=== PATIENT | male | born 1955 | race Caucasian/White ===

== ENCOUNTER 2019-02-16 13:28 | Emergency (ER) | payer BC ==
--- OUTSIDE RECORDS SUMMARY | 2019-02-16 13:33 | XMS REPORT | Continuity of Care Document ---
:1955 External Reference #:[id number] Author Name Ross Nolvia Care Team Providers Name Role Phone Autumn Swain MD Primary Care Physician Unavailable Payers Date Identification Numbers Payment Provider Subscriber Policy Number: [id number] BS Abdon Zoraida Tom PayID: [id number] [address] [address] [place] [address] Advance Directives Description No Information Available Problems Date Description Provider Status Onset: 12/06/2018 Localized, primary osteoarthritis Yasmine Camarena M.D. Active Onset: 01/05/2019 Current tear of medial cartilage AND/OR Yasmine Camarena M.D. Active meniscus of knee Family History Description No Information Available Social History Type Date Description Comments Sex Unknown Lives With Spouse Occupation [employer] ETOH Use Currently consumes alcohol Tobacco Use Start: Unknown Patient has never smoked Smoking Status Reviewed: 01/31/19 Patient has never smoked Exercise Type/Frequency Exercises sporadically Allergies, Adverse Reactions, Alerts Date Description Reaction Status Severity Comments 12/06/2018 Penicillin Active uticaria 12/06/2018 Sodium Penthanol Active severe vommiting Medications Medication Date Status Form Strength Qnty SIG Indications Ordering Provider Shingrix 01/31/ Active Suspension 50mcg/0.5M 2units inject per Z23 Autumn 2019 Rec L protocol MD Wiliam Carvedilol / Active Tablets 12.5mg 1 by mouth Unknown 0000 twice a day Glipizide / Active Tablets 5mg 1 by mouth Unknown 0000 every day Losartan 0000/ Active Tablets 100mg 1 by mouth Unknown Potassium 0000 every day Simvastatin 00// Active Tablets 40mg 1 by mouth Unknown 0000 every day Omeprazole / Active Capsules DR 40mg 1 by mouth Unknown 0000 every day Lasix / Active Tablets 40mg 1 by mouth Unknown 0000 every day Aspirin Low / Active Chewtabs 81mg 1 by mouth Unknown Dose Adult 0000 every day in PM Multi Vitamin / Active Tablets 1 by mouth Unknown 0000 every day Vitamin C / Active Tablets 1000mg 1 by mouth Unknown 0000 every day Ibuprofen / Active Capsules 200mg prn Unknown 0000 Fish Oil / Active Capsules 2000mg daily Unknown 0000 Medications Administered in Office Medication Date Status Form Strength Qnty SIG Indications Ordering Provider Depomedrol Administered Injection Yasmine 40MG Becky Camarena M.D. Immunizations Description No Information Available Vital Signs Date Vital Result Comment 01/31/2019 11:57am Height 70.25 inches 5'10.25" Weight 240.00 lb Heart Rate 56 /min BP Systolic 123 mmHg BP Diastolic 77 mmHg Body Temperature 96.6 F O2 % BldC Oximetry 96 % BMI (Body Mass Index) 34.2 kg/m2 01/05/2019 8:01am Height 71 inches 5'11" Weight 230.00 lb Heart Rate 64 /min BP Systolic 116 mmHg BP Diastolic 68 mmHg BMI (Body Mass Index) 32.1 kg/m2 12/06/2018 9:27am Height 61 inches 5'1" Weight 232.00 lb BP Systolic 112 mmHg BP Diastolic 69 mmHg Respiratory Rate 16 /min Pain Level 7 BMI (Body Mass Index) 43.8 kg/m2 Results Description No Information Available Procedures Date Code Description Status 01/05/2019 07524 Inject/Drain Joint/Bursa Major W/O US Completed Encounters Type Date Location Provider Dx Diagnosis Office Visit 01/05/2019 Orthopedic Yasmine Camarena, M25.561 Pain in right 8:00a [facility] knee M25.461 Effusion, right knee S83.241A Oth tear of medial meniscus, current injury, r knee, init M17.11 Unilateral primary osteoarthritis, right knee Office Visit 12/06/2018 9:00a [facility] Yasmine Camarena, M25.561 Pain in right Of [facility] M.[facility] knee M25.562 Pain in left knee M25.462 Effusion, left knee M25.461 Effusion, right knee M17.0 Bilateral primary osteoarthritis of knee M23.8x1 Other internal derangements of right knee Plan of Treatment Future Appointment(s):08/06/2019 10:00 am - Autumn Swain MD at [facility] - Kdfxzypjd33/06/2019 - Autumn Swain MDH92.01 Otalgia, right earReferral:Ulysses Yang MD, LxprishfrgabzrG35.512 Pain in left shoulderNew Xrays:Shoulder Left 2+ VWS, Ordered: 01/31/19E11.9 Type 2 diabetes mellitus without complicationsNew Labs:Hemoglobin A1c (Glyco HGB), Ordered: Lipid Profile (Trig/Chol/HDL), Ordered: 01/31/19Comp Metabolic Panel, Ordered : 01/31/19Urine Microalbumin Random, Ordered: 01/31/19PSA Free And Total, Ordered: 01/31/19Follow up:F/U 6 [id number] Cardiomyopathy, tseaesjpkolM18 Essential (primary) vwlrxzthsxtbC16.5 Hyperlipidemia, zaugbfjdfdwX23.20 Elevated prostate specific antigen [PSA]Referral:De Robles MD, [id number] Encounter for immunizationNew Medication:Shingrix 50 mcg/0.5ML - inject per protocol
[2019-02-16 13:44] VITALS: BP 148/97
--- NOTE | 2019-02-16 14:11 | UC ---
Skin Complaint HPI - HPI Summary HPI Summary: tick bite right forearm x 2 days no fever, no chills , no joint or body aches - History of Current Complaint Chief Complaint: UCSkin Time Seen by Provider: 02/16/19 13:44 Stated Complaint: TICK Hx Obtained From: Patient Onset/Duration: Gradual Onset, Lasting Days - 2, Still Present Timing: Constant Onset Severity: Mild Current Severity: Mild Pain Intensity: 6 Location: Discrete - right forearm Character: Redness Aggravating Factor(s): Nothing Alleviating Factor(s): Nothing Associated Signs & Symptoms: Positive: Negative. Negative: Nausea, Vomiting, Numbness, Weakness, Fever, Chills, Tenderness, Red Streaks Related History: Insect Bite/Sting - tick bite - Allergy/Home Medications Allergies/Adverse Reactions: Allergies Allergy/AdvReac Type Severity Reaction Status Date / Time Penicillins Allergy Hives Verified 02/16/19 13:45 Home Medications: Home Medications Aspirin [Aspirin Childrens 81 MG] 81 mg PO DAILY 02/16/19 [History Confirmed ] Carvedilol TAB* [Coreg TAB*] 12.5 mg PO BID 02/16/19 [History Confirmed 02/16/19 ] Furosemide TAB* [Lasix TAB*] 40 mg PO DAILY 02/16/19 [History Confirmed 02/16/19 ] Ibuprofen TAB* [Advil TAB*] 200 mg PO Q6H PRN 02/16/19 [History Confirmed ] Losartan TAB* [Cozaar TAB*] 100 mg PO DAILY 02/16/19 [History Confirmed 02/16/19 ] Multivitamin [Multivitamins] 1 cap PO DAILY 02/16/19 [History Confirmed 02/16/19 ] [place]-3/Dha/Epa/Fish Oil [Fish Oil 500 mg Softgel] 2 cap PO DAILY 02/16/19 [ History Confirmed 02/16/19] Omeprazole 40 mg PO DAILY 02/16/19 [History Confirmed 02/16/19] Simvastatin 40 mg PO DAILY 02/16/19 [History Confirmed 02/16/19] glipiZIDE TAB* [Glucotrol TAB*] 5 mg PO BID 02/16/19 [History Confirmed 02/16/19 ] PMH/Surg Hx/FS Hx/Imm Hx Endocrine History: Diabetes Cardiovascular History: Cardiac Disease, Hypertension - Surgical History Surgical History: Yes Surgery Procedure, Year, and Place: ICD- MEDTRONIC [id number] [facility] ET - MR CONDITIONAL 03/2016. ACD, LSP DISCECTOMY 1999, RT ANKLE ORIF,. CATARACT REPAIR - Family History Known Family History: Positive: Hypertension, Diabetes - Social History Alcohol Use: Occasionally Substance Use Type: None Smoking Status (MU): Never Smoked Tobacco Review of Systems All Other Systems Reviewed And Are Negative: Yes Constitutional: Positive: Negative Eyes: Positive: Negative ENT: Positive: Negative Respiratory: Positive: Negative Is Patient Immunocompromised?: No Physical Exam Triage Information Reviewed: Yes Appearance: Well-Appearing, No Pain Distress, Well-Nourished Vital Signs: Initial Vital Signs Temp 97.3 F 02/16/19 13:40 Pulse 84 02/16/19 13:40 Resp 14 02/16/19 13:40 BP 148/97 02/16/19 13:40 Pulse Ox 94 02/16/19 13:40 Vital Signs Reviewed: Yes Eye Exam: Normal Eyes: Positive: Conjunctiva Clear ENT: Positive: Normal ENT inspection, Hearing grossly normal, Pharynx normal Neck: Positive: Supple, Nontender, No Lymphadenopathy Respiratory: Positive: Chest non-tender, Lungs clear, Normal breath sounds Cardiovascular: Positive: RRR, No Murmur, Pulses Normal Skin: Positive: Other - samll tick on right forearm , tick was removed using a tick twister Course/Dx - Diagnoses Provider Diagnosis: Tick bite of right forearm Discharge - Sign-Out/Discharge Documenting (check all that apply): Patient Departure All imaging exams completed and their final reports reviewed: No Studies - Discharge Plan Condition: Stable Disposition: HOME Prescriptions: DOXYcycline CAP(*) [DOXYcycline 100MG CAP(*)] 200 mg PO DAILY #2 cap Patient Education Materials: Tick Bite (ED) Referrals: Autumn Swain MD [Primary Care Provider] - If Needed - Billing Disposition and Condition Condition: STABLE Disposition: Home
== END 2019-02-16 14:10 | disposition home or self-care (01) ==
LOC: UCEAST 13:28
DX: S50.861A Insect bite (nonvenomous) of right forearm, initial encounter (principal); Z88.0 Allergy status to penicillin; I10 Essential (primary) hypertension; E11.9 Type 2 diabetes mellitus without complications; W57.XXXA Bitten or stung by nonvenomous insect and other nonvenomous arthropods, initial encounter; Y92.9 Unspecified place or not applicable
CPT/HCPCS: 99212; G0463

== ENCOUNTER 2021-06-18 00:46 | Observation (INO) ==
[2021-06-18] MEDS ORDERED: Morphine 4 MG/ML VIAL (1 ml) IV ONE (02:29)
[2021-06-18 02:31] LABS: ABS Lymphocytes 0.7 10^3/ul (1.0-4.8); ABS Monocytes 1.1 10^3/ul (0-0.8); ABS Neutrophils 13.1 10^3/ul (1.5-7.7); Eosinophil % 0.2 %; Hematocrit 42 % (42-52); Hemoglobin 14.4 g/dL (14.0-18.0); Lymphocyte % 4.9 %; Mean Corpuscular HGB Conc 34 g/dL (31-36); Mean Corpuscular Hemoglobin 30 pg (27-31); Mean Corpuscular Volume 89 fL (80-94); Mean Platelet Volume 10.2 fL (7.4-10.4); Platelet Count 178 10^3/uL (150-450); Red Blood Count 4.78 10^6 /uL (4.18-5.48); Red Cell Distribution Width 14 % (10-15)
[2021-06-18 02:50] LABS: Albumin 3.7 g/dL (3.2-5.2); Albumin/Globulin Ratio 1.1 (1-3); C Reactive Protein 12.46 mg/L (<8.01); Calcium 9.5 mg/dL (8.6-10.3); EGFR African American 85.5 (>60); EGFR Non-African American 70.7 (>60); Globulin 3.3 g/dL (2-4); Potassium 4.3 mmol/L (3.5-5.0); Total Bilirubin 0.9 mg/dL (0.2-1.0)
[2021-06-18 02:57] LABS: Urine Appearance Clear; Urine Bilirubin Negative (Negative); Urine Blood Negative (Negative); Urine Color Yellow; Urine Glucose 1+(50 mg/dL) (Negative); Urine Ketones Trace (Negative); Urine Nitrite Negative (Negative); Urine Protein Negative (Negative); Urine Specific Gravity 1.025 (1.002-1.030); Urine Urobilinogen Negative (Negative)
[2021-06-18] MEDS ORDERED: Morphine 4 MG/ML VIAL (1 ml) IV PRN (03:39)
[2021-06-18] MEDS ORDERED: Iodixanol (CONTRAST) 320 MG/ML 100 ML SDV IV ONE (03:46)
[2021-06-18] MEDS ORDERED: metroNIDAZOLE IV 500 MG/100ML 500 MG/100 ML BAG IVPB ONE (08:42)
[2021-06-18] MEDS ORDERED: cefTRIAXone 1 gm/50 mL NS BAG 1 GM/50 ML BAG IV ONE (08:42)
[2021-06-18] MEDS ORDERED: Ondansetron 4 mg VIAL 2 MG/ML 2 ml VIAL IV PRN (10:41)
[2021-06-18] MEDS ORDERED: NS 0.9% 1000 ml BAG 1,000 ML IV SCH (10:45)
[2021-06-18] MEDS ORDERED: Dextrose 50% Syringe 50 ml 25 GM/50 ML SYRINGE IV PUSH PRN (10:51)
[2021-06-18] MEDS: metroNIDAZOLE IV 500 MG/100ML 500 MG/100 ML BAG IVPB SCH (17:47)
[2021-06-19] MEDS: metroNIDAZOLE IV 500 MG/100ML 500 MG/100 ML BAG IVPB SCH ×3 (01:34→18:39)
[2021-06-19 06:22] LABS: ABS Monocytes 0.8 10^3/ul (0-0.8); ABS Neutrophils 8.1 10^3/ul (1.5-7.7); Eosinophil % 0.1 %; Hematocrit 39 % (42-52); Hemoglobin 13.2 g/dL (14.0-18.0); Lymphocyte % 9.8 %; Mean Corpuscular HGB Conc 34 g/dL (31-36); Mean Corpuscular Hemoglobin 31 pg (27-31); Mean Corpuscular Volume 89 fL (80-94); Mean Platelet Volume 10.7 fL (7.4-10.4); Platelet Count 144 10^3/uL (150-450); Red Blood Count 4.33 10^6 /uL (4.18-5.48); Red Cell Distribution Width 14 % (10-15); White Blood Count 9.9 10^3/uL (3.5-10.8)
[2021-06-19 06:37] LABS: Albumin 3.2 g/dL (3.2-5.2); Calcium 8.8 mg/dL (8.6-10.3); EGFR Non-African American 79.3 (>60); Globulin 3.2 g/dL (2-4); Potassium 4.1 mmol/L (3.5-5.0); Total Bilirubin 0.6 mg/dL (0.2-1.0); Total Protein 6.4 g/dL (6.4-8.9)
[2021-06-19] MEDS: cefTRIAXone 1 gm/50 mL NS BAG 1 GM/50 ML BAG IVPB SCH (09:00)
[2021-06-19] MEDS ORDERED: Dexamethasone IV 4 MG/ML VIAL 1 ml VIAL ONE (11:18)
[2021-06-19] MEDS ORDERED: Lidocaine 2% PF 5 ML VIAL ONE (11:18)
[2021-06-19] MEDS ORDERED: fentaNYL 250 mcg/5 ml 50 MCG/ML 5 ml VIAL (250 MCG) ONE (11:18)
[2021-06-19] MEDS ORDERED: Propofol 10 MG/ML 20 ML BTL ONE (11:18)
[2021-06-19] MEDS ORDERED: Rocuronium 50 mg VIAL 10 mg/ml 5 ml VIAL (50 mg) ONE ×2 (11:18→13:50)
[2021-06-19] MEDS ORDERED: Midazolam 2 mg/2 ml VIAL 1 mg/ml 2 ml VIAL (2 mg) ONE (11:18)
[2021-06-19] MEDS ORDERED: Bupivacaine 0.25% SDV 30 ML ONE (12:17)
[2021-06-19] MEDS ORDERED: Phenylephrine 40 mcg/mL 10mL (400mcg) SYRINGE ONE (13:20)
[2021-06-19] MEDS ORDERED: Phenylephrine IV 10 MG/ML 1 ml VIAL ONE ×2 (13:20→15:27)
[2021-06-19] MEDS ORDERED: Sugammadex 500 MG/5 ML 5 ml VIAL IV PUSH ONE (13:21)
[2021-06-19] MEDS ORDERED: Ondansetron 4 mg VIAL 2 MG/ML 2 ml VIAL ONE ×2 (13:21→16:58)
[2021-06-19] MEDS ORDERED: Naloxone 0.4 mg VIAL 0.4 mg/ml 1 ml VIAL IV PRN (14:04)
[2021-06-19] MEDS ORDERED: Acetaminophen IV 1 GM/100ML 100 ML IV PRN (14:04)
[2021-06-19] MEDS ORDERED: fentaNYL 100 mcg/2 ml 50 MCG/ML VIAL IV PRN (14:04)
[2021-06-19] MEDS ORDERED: HYDROmorphone 1 MG/1 ML SYRINGE IV PRN (14:04)
[2021-06-19] MEDS ORDERED: DiMENhydriNATE IV 50 mg/ml 1 ml VIAL IV PUSH PRN (14:04)
[2021-06-19] MEDS ORDERED: Ondansetron 4 mg VIAL 2 MG/ML 2 ml VIAL IV PRN (14:04)
[2021-06-19] MEDS ORDERED: fentaNYL 100 mcg/2 ml 50 MCG/ML VIAL ONE (15:28)
[2021-06-19] MEDS ORDERED: DiMENhydriNATE IV 50 mg/ml 1 ml VIAL ONE (16:58)
[2021-06-19] MEDS ORDERED: HYDROmorphone 1 MG/1 ML SYRINGE ONE (16:58)
[2021-06-20] MEDS: metroNIDAZOLE IV 500 MG/100ML 500 MG/100 ML BAG IVPB SCH ×3 (02:00→17:56)
[2021-06-20 05:21] LABS: ABS Monocytes 0.7 10^3/ul (0-0.8); ABS Neutrophils 14.2 10^3/ul (1.5-7.7); Hematocrit 37 % (42-52); Hemoglobin 12.5 g/dL (14.0-18.0); Lymphocyte % 6.1 %; Mean Corpuscular HGB Conc 34 g/dL (31-36); Mean Corpuscular Hemoglobin 30 pg (27-31); Mean Corpuscular Volume 89 fL (80-94); Mean Platelet Volume 10.7 fL (7.4-10.4); Platelet Count 145 10^3/uL (150-450); Red Blood Count 4.15 10^6 /uL (4.18-5.48); Red Cell Distribution Width 14 % (10-15); White Blood Count 15.8 10^3/uL (3.5-10.8)
[2021-06-20 05:35] LABS: Calcium 8.4 mg/dL (8.6-10.3); EGFR African American 94.8 (>60); EGFR Non-African American 78.4 (>60); Potassium 4.3 mmol/L (3.5-5.0)
[2021-06-20] MEDS: cefTRIAXone 1 gm/50 mL NS BAG 1 GM/50 ML BAG IVPB SCH (08:40)
[2021-06-21] MEDS: metroNIDAZOLE IV 500 MG/100ML 500 MG/100 ML BAG IVPB SCH ×2 (02:53→10:09)
[2021-06-21] MEDS ORDERED: Senna TAB 8.6 mg TAB PO PRN (04:09)
[2021-06-21] MEDS ORDERED: Polyethylene Glycol 3350 17 GM PACKET PO PRN (04:09)
[2021-06-21 08:02] LABS: ABS Lymphocytes 1.8 10^3/ul (1.0-4.8); ABS Neutrophils 11.4 10^3/ul (1.5-7.7); Eosinophil % 0.1 %; Hematocrit 37 % (42-52); Hemoglobin 12.3 g/dL (14.0-18.0); Lymphocyte % 12.5 %; Mean Corpuscular HGB Conc 34 g/dL (31-36); Mean Corpuscular Hemoglobin 30 pg (27-31); Mean Corpuscular Volume 88 fL (80-94); Mean Platelet Volume 10.1 fL (7.4-10.4); Platelet Count 160 10^3/uL (150-450); Red Blood Count 4.16 10^6 /uL (4.18-5.48); Red Cell Distribution Width 14 % (10-15); White Blood Count 14.2 10^3/uL (3.5-10.8)
[2021-06-21] MEDS: cefTRIAXone 1 gm/50 mL NS BAG 1 GM/50 ML BAG IVPB SCH (08:59)
[2021-06-21 11:09] VITALS: BP 131/80
== END 2021-06-21 12:30 | disposition home or self-care (01) ==
LOC: ED 00:46 → SSU 00:46
PROVIDERS: ADMIT Student in an Organized Health Care Education/Training Program; ATTEND Hospitalist

== ENCOUNTER 2022-02-11 06:40 | Inpatient (IN) ==
[~2022-02-11 06:40] MED LIST: Buffered Lidocaine 1% SYRIN 1 ml INTRADERM ONE; DiMENhydriNATE IV 50 mg/ml 1 ml VIAL IV PUSH ONE; HYDROcodone/ACETAMIN 5/325 mg TAB PO PRN; Lactated Ringers 1000 ml BAG 1,000 ML IV SCH; Metoclopramide 5 MG/ML VIAL (10 mg) IV PRN; Naloxone 0.4 mg VIAL 0.4 mg/ml 1 ml VIAL IV PRN; Ondansetron 4 mg VIAL 2 MG/ML 2 ml VIAL IV PRN; fentaNYL 100 mcg/2 ml 50 MCG/ML VIAL IV PRN
[2022-02-11] MEDS ORDERED: DiMENhydriNATE IV 50 mg/ml 1 ml VIAL ONE (07:00)
[2022-02-11] MEDS ORDERED: Clindamycin 900 MG/D5W BAG 900 MG/50 ML BAG IVPB ONE (07:00)
[2022-02-11] MEDS ORDERED: Lidocaine 2% PF 5 ML VIAL ONE (07:41)
[2022-02-11] MEDS ORDERED: Propofol 10 MG/ML 20 ML BTL ONE ×2 (07:41→11:19)
[2022-02-11] MEDS ORDERED: fentaNYL 100 mcg/2 ml 50 MCG/ML VIAL ONE ×2 (07:41→08:25)
[2022-02-11] MEDS ORDERED: Dexamethasone IV 4 MG/ML VIAL 1 ml VIAL ONE (07:41)
[2022-02-11] MEDS ORDERED: Phenylephrine IV 10 MG/ML 1 ml VIAL ONE (07:42)
[2022-02-11] MEDS ORDERED: Midazolam 2 mg/2 ml VIAL 1 mg/ml 2 ml VIAL (2 mg) ONE ×2 (07:42→08:25)
[2022-02-11] MEDS ORDERED: Bupivacaine 0.5% SDV PF 30ML VIAL ONE (07:42)
[2022-02-11] MEDS ORDERED: ROPIVACAINE 5 MG/ML 30 ML BTL (0.5%) ONE (08:20)
[2022-02-11] MEDS ORDERED: Ropivacaine 5 MG/ML 20 ML VIAL 0.5% (100 MG) ONE (09:02)
[2022-02-11] MEDS ORDERED: Rocuronium 50 mg VIAL 10 mg/ml 5 ml VIAL (50 mg) ONE (09:37)
[2022-02-11] MEDS ORDERED: Magnesium Hydroxide LIQ 30 ML UDC PO PRN (10:25)
[2022-02-11] MEDS ORDERED: diPHENhydraMINE IV 50 MG/ML 1 ml VIAL (BENADRYL) IV PRN (10:25)
[2022-02-11] MEDS ORDERED: diPHENhydraMINE 25 mg TAB PO PRN (10:25)
[2022-02-11] MEDS ORDERED: Ondansetron ODT 4 mg TAB 4 MG TAB PO PRN (10:25)
[2022-02-11] MEDS ORDERED: Lactulose 30 ml UDC PO PRN (10:25)
[2022-02-11] MEDS ORDERED: Lactated Ringers 1000 ml BAG 1,000 ML IV SCH ×2 (11:00→17:40)
[2022-02-11] MEDS ORDERED: HYDROcodone/ACETAMIN 5/325 mg TAB ONE (12:40)
[2022-02-11] MEDS: Clindamycin 600 MG/D5W BAG 600 MG/50 ML BAG IV SCH (17:08)
[2022-02-11] MEDS ORDERED: Dextrose 50% Syringe 50 ml 25 GM/50 ML SYRINGE IV PUSH PRN (17:23)
[2022-02-11] MEDS: Ondansetron 4 mg VIAL 2 MG/ML 2 ml VIAL IV PRN (18:48)
[2022-02-11 20:32] LABS: Calcium 8.6 mg/dL (8.6-10.3); Magnesium 1.4 mg/dL (1.9-2.7); Potassium 4.1 mmol/L (3.5-5.0); eGFR CKD-EPI 75.2 (>60)
[2022-02-11] MEDS ORDERED: Simvastatin 20 mg TAB (NF) PO SCH (21:00)
[2022-02-11] MEDS ORDERED: Insulin GLARGINE 100 un/ml 10 ml VIAL SUBCUT SCH (21:00)
[2022-02-11] MEDS: Magnesium Hydroxide LIQ 30 ML UDC PO SCH (21:06)
[2022-02-12] MEDS: Clindamycin 600 MG/D5W BAG 600 MG/50 ML BAG IV SCH ×2 (01:00→08:52)
[2022-02-12] MEDS: Ondansetron 4 mg VIAL 2 MG/ML 2 ml VIAL IV PRN (01:58)
[2022-02-12 06:08] LABS: Hematocrit 38 % (42-52); Hemoglobin 13.1 g/dL (14.0-18.0); Mean Platelet Volume 10.4 fL (7.4-10.4); Platelet Count 141 10^3/uL (150-450)
[2022-02-12 06:23] LABS: Calcium 8.3 mg/dL (8.6-10.3); Potassium 4.1 mmol/L (3.5-5.0); eGFR CKD-EPI 79.6 (>60)
[2022-02-12] MEDS: Magnesium Hydroxide LIQ 30 ML UDC PO SCH (08:46)
[2022-02-12] MEDS ORDERED: Vitamin THERAPEUTIC TAB PO SCH (09:00)
[2022-02-12] MEDS ORDERED: HYDROcodone/ACETAMIN 5/325 mg TAB PO PRN (10:09)
[2022-02-12 11:20] LABS: Magnesium 1.5 mg/dL (1.9-2.7)
[2022-02-12 12:08] VITALS: BP 149/81
== END 2022-02-12 13:50 | disposition home or self-care (01) | DRG 470 ==
LOC: SSU 06:40 → OR 06:40 → OBSVTOIN 14:57
PROVIDERS: ADMIT Orthopaedic Surgery Adult Reconstructive Orthopaedic Surgery; ATTEND Orthopaedic Surgery Adult Reconstructive Orthopaedic Surgery